=== PATIENT | male | born 1940 | race African-American/Black ===

== ENCOUNTER 2021-12-26 18:19 | Emergency (ER) | payer OTHER ==
[~2021-12-26] VITALS: Ht 167.6 cm; Wt 74.8 kg
--- NOTE | 2021-12-26 18:25 | NUR ---
To ER bed 12, ROBERTO CARLOS [id number] from Home"FLORIAN/Feel Dizzy-spinning and nausea- zofran 4 given", aaox4, breathing even and non labored, connected to monitor, awaiting md orders
[2021-12-26] MEDS ORDERED: ONDANSETRON HCL/PF 4 MG/2 ML VIAL ONE (18:38)
[2021-12-26] MEDS ORDERED: PANTOPRAZOLE 40 MG VIAL ONE (18:38)
--- NOTE | 2021-12-26 18:55 | NUR ---
DENTAL PROFESSIONAL AT BEDSIDE FOR BLOOD DRAW
[2021-12-26] MEDS ORDERED: ONDANSETRON HCL/PF 4 MG/2 ML VIAL IVP ONE (19:00)
[2021-12-26] MEDS ORDERED: IV NS 0.9% 500 ML BAG IV ONE (19:00)
[2021-12-26] MEDS ORDERED: PANTOPRAZOLE 40 MG VIAL IV ONE (19:00)
[2021-12-26 19:30] LABS: ALBUMIN 3.7 g/dL (3.4-5.0); BILIRUBIN,DIRECT 0.2 mg/dL (0.0-0.2); BILIRUBIN,TOTAL 0.9 mg/dL (0.2-1.0); CREATININE 1.2 mg/dL (0.6-1.3); POTASSIUM 3.9 mmol/L (3.5-5.1)
[2021-12-26 20:03] LABS: BASOPHILS % (AUTO) 0.2 % (0.0-2.0); EOSINOPHILS % (AUTO) 1.7 % (0.0-6.0); HEMATOCRIT 37 % (39-51); HEMOGLOBIN 12.7 g/dL (13.5-17.5); LYMPHOCYTES # (AUTO) 1.6 K/uL (0.8-4.8); LYMPHOCYTES % (AUTO) 20.5 % (20.0-44.0); MEAN CORPUSCULAR HGB CONC 34 g/dl (31.0-36.0); MEAN CORPUSCULAR VOLUME 92 fL (80-96); MONOCYTES # (AUTO) 0.6 K/uL (0.1-1.30); MONOCYTES % (AUTO) 7.9 % (2.0-12.0); NEUTROPHILS # (AUTO) 5.4 K/uL (1.8-8.9); NEUTROPHILS % (AUTO) 69.7 % (43.0-81.0); PLATELET COUNT (AUTO) 154 K/uL (150-450); RED BLOOD CELL COUNT(AUTO) 4.05 MIL/uL (4.5-6.0); WHITE BLOOD COUNT (AUTO) 7.7 K/uL (4.3-11.0)
--- NOTE | 2021-12-26 20:55 | NUR ---
IV removed. Catheter intact and site benign. Pressure and 4x4 applied to site. No bleeding noted.Patient discharged to home in stable condition. Written and verbal after care instructions given. Patient verbalizes understanding of instruction.
[2021-12-26 21:00] VITALS: BP 135/80
== END 2021-12-26 20:55 | disposition home or self-care (01) ==
LOC: ER 18:22
DX: R11.10 Vomiting, unspecified (principal); I10 Essential (primary) hypertension; R10.9 Unspecified abdominal pain; Z98.890 Other specified postprocedural states
CPT/HCPCS: 99285; 96374; 71045; 96375; 93005; 85025; 80048; 83690; 80076; 36415; J2405; J7040; C9113